=== PATIENT | male | born 1970 | race Hispanic/Latino ===

== ENCOUNTER 2024-02-14 18:59 | Observation (INO) | payer SELFPAY ==
--- NOTE | ~2024-02-14 | CT_ITS ---
EXAMINATION: CT facial bones w con DATE: 02/14/2024 22:34 INDICATION: Left facial swelling TECHNIQUE: Computed tomography (CT) of the facial bones and maxillofacial region was performed with 1 00 mL Omnipaque-350 intravenous contrast. Coronal reconstructions were obtained. Automated exposure c ontrol and iterative reconstruction technique were employed. The dose-length product was 577.92 mGy-c m. COMPARISON: None. FINDINGS: Dental disease including a few missing teeth. There is a large dental caries involving the left maxil andrea canine. There is associated periapical lucency also involving the adjacent left maxillary first bicuspid and which erodes through the overlying peripheral cortex. There is prominent soft tissue swe lling phlegmonous change with dense stranding in the subcutaneous fat at the left side of the upper l ip, cheek and extending cephalad along the left side of the nasal labial fold. No organized periphera lly enhancing abscess. There is additional periapical lucency with surrounding sclerosis involving th e left mandibular canine. Developmentally impacted right maxillary central incisor which extends ante roposteriorly within the right anteromedial aspect of the hard palate. Orbits are normal. Moderate mu cosal thickening the bilateral maxillary and ethmoid sinuses. The bilateral middle ear cavities, left mastoid air cells and visualized portions of the right mastoid air cells are clear. IMPRESSION: 1. Large dental Jihan involving the left maxillary canine with periapical lucency extending to involv e the adjacent left maxillary first bicuspid which erodes through the peripheral cortex with phlegmon ous change but no organized abscess in the overlying soft tissues. Reviewed, dictated and finalized at location A. IMPRESSION: 1. Large dental Jihan involving the left maxillary canine with periapical lucen cy extending to involve the adjacent left maxillary first bicuspid which erodes through the peripheral cortex with phlegmonous change but no organized abscess in the overlying soft tissues.
[2024-02-14 19:02] VITALS: BP 183/71; PULSE 78; RESP 20; TEMP 36.2; O2SAT 99
[2024-02-14 21:19] VITALS: BP 150/77; PULSE 90; RESP 16; TEMP 36.6; O2SAT 97
--- NOTE | 2024-02-14 21:26 | ED.DENTAL ---
HPI - Dental/Oral General Chief complaint: Dental/Oral <LYNETTE Vazquez Last Filed: 02/15/24 00:09> Stated complaint: dental <LYNETTE Vazquez Last Filed: 02/15/24 00:09> Time Seen by Provider: 02/14/24 21:15 <LYNETTE Vazquez Last Filed: 02/15/24 00:09> Source: patient <LYNETTE Vazquez Last Filed: 02/15/24 00:09> Mode of arrival: ambulatory <LYNETTE Vazquez Last Filed: 02/15/24 00:09> Limitations: language barrier (patient's family member is interpreting which he prefered) <LYNETTE Vazquez Last Filed: 02/15/24 00:09> History of Present Illness HPI Narrative: This is a 53 year old male that presents to the ER for dentalgia. Ongoing since yesterday. Associated with facial swelling and redness. Denies fevers or drainage. <LYNETTE Vazquez Last Filed: 02/15/24 00:09> Related Data Home medications: Home Medications Medication Instructions Recorded Confirmed acetaminophen 325 mg tablet 325 mg PO Q6H PRN Pain, Mild 02/15/24 02/15/24 (Tylenol) ibuprofen 200 mg tablet 200 mg PO Q6H PRN Pain, Mild 02/15/24 02/15/24 <LYNETTE Vazquez Last Filed: 02/15/24 00:09> Allergies/adverse reactions: Allergies Allergy/AdvReac Type Severity Reaction Status Date / Time No Known Allergies Allergy Verified 02/14/24 22:56 <LYNETTE Vazquez Last Filed: 02/15/24 00:09> Review of Systems Review of Systems: CONSTITUTIONAL: Denies fever ENT: Reports dentalgia <LYNETTE Vazquez Last Filed: 02/15/24 00:09> All systems reviewed & are unremarkable except as noted in HPI and below <LYNETTE Vazquez Last Filed: 02/15/24 00:09> [facility]LY [facility] Past Medical History Medical History: Medical History (Updated 02/14/24 @ 23:04 by Loretta Nix PA-C) No active medical problems <Loretta Nix PA-C - Last Filed: 02/15/24 00:09> Family History Family History: Family History (Updated 02/15/24 @ 03:23 by Brooke Amato) Father Hernia Mother Diabetes mellitus <Loretta Nix PA-C - Last Filed: 02/15/24 00:09> Social History Social History: Social History (Updated 02/14/24 @ 21:28 by Loretta Nix PA-C) Smoking status: Never smoker Alcohol intake: never Substance use: never Do You Feel Safe in your Home?: Yes Lack of Transportation: No Lack of Food: Never True Current Housing: I Have Housing Concerned About Future Housing: No Difficulty Paying Gas/Electric Bills: No Difficulty Paying for Meds: No Currently Unemployed: No Education: Grade School Difficulty w/ Childcare or Family Care: No Spiritual care concerns: No <Loretta Nix PA-C - Last Filed: 02/15/24 00:09> Exam Narrative: GENERAL: Well-appearing, well-nourished, and in no acute distress. HEAD: Normocephalic, atraumatic. EYES: EOMI. ENT: Nares clear, no rhinorrhea or epistaxis. Mucous membranes moist. Oropharynx without tonsillar hypertrophy exudate or other lesions. No trismus. Poor dentition. No focal edema or fluctuance to suggest abscess. Tooth number 12 decaying NECK: Supple. No adenopathy or masses. CHEST: No respiratory distress. HEART: Regular rate EXTREMITIES: Normal range of motion. No edema. SKIN: Warm, dry, no rash. NEURO: No focal deficits. Alert and oriented x3. PSYCH: Normal mood and affect <Loretta Nix PA-C - Last Filed: 02/15/24 00:09> Course Course Emergency Course: Patient updated on workup and recommendation for admission <Loretta Nix PA-C - Last Filed: 02/15/24 00:09> MEDICAL RECORD SPECIALIST/PA Physician Supervision For this patient encounter, I reviewed the MEDICAL RECORD SPECIALIST or PA documentation, treatment plan, and medical decision making and had [id number] time with this patient. I performed all aspects of the MDM as documented. <Laura Louis MD - Last Filed: 02/15/24 07:32> Consultations Consultation #1: Spoke with hospital
[2024-02-14 21:36] LABS: Basophils Percent Auto 0.4 % (0.2-1.2); Eosinophils Absolute Auto 0.2 K/mm3 (0-0.3); Eosinophils Percent Auto 2.2 % (0-4.4); Hematocrit 40.6 % (42.0-52.0); Hemoglobin 13.9 g/dL (14.0-18.0); Immature Granulocyte Absolute 0.02 K/mm3 (0.00-0.031); Immature Granulocyte Percent A 0.3 % (0-0.5); Lymphocytes Absolute Auto 2.23 K/mm3 (0.9-3.2); Mean Corpuscular HGB Conc 34.2 g/dl (32-36); Mean Corpuscular Hemoglobin 30.1 pg (26-34); Mean Corpuscular Volume 87.9 fl (80-100); Mean Platelet Volume 9.1 fl (7.4-10.4); Monocytes Absolute Auto 0.7 K/mm3 (0.1-0.6); Monocytes Percent Auto 9.5 % (2.6-8.5); Neutrophils Absolute Auto 4.5 K/mm3 (1.3-6.7); Neutrophils Percent Auto 58.6 % (45.5-73.1); Platelet Count Result 282 k/mm3 (150-375); Red Blood Count 4.62 M/mm3 (4.6-6.20); Red Cell Distribution Width 13.1 % (11.5-14.5); White Blood Count 7.7 K/mm3 (4.5-10.0)
[2024-02-14 21:48] LABS: Anion Gap 6 mmol/L (4-12); Blood Urea Nitrogen 17 mg/dL (9-20); CRP 4.5 mg/dL (<1.0); Calcium 9.4 mg/dL (8.4-10.2); Carbon Dioxide 26 mmol/L (22-30); Chloride 104 mmol/L (98-107); Estimated Glomerular Filt Rate > 60; Glucose 105 mg/dL (65-110); Potassium 3.3 mmol/L (3.4-5.0); Sodium 136 mmol/L (137-145)
[2024-02-14 22:03] LABS: Erythrocyte Sedimentation Rate 61 mm/hr (0-20)
[2024-02-14 22:12] LABS: Magnesium 2.2 mg/dL (1.6-2.3)
[2024-02-14] MEDS: POTASSIUM CHLORIDE 20 MEQ ER TABLET 40 MEQ PO (22:18)
[2024-02-14] MEDS: AMPICILLIN SULB 3 GM/NS 100 ML 3 GM/100 ML VIAL IVPB (22:58)
--- NOTE | 2024-02-14 23:09 | PM.IMHP ---
H&P: HPI History of Present Illness Date/Time: 02/14/24 23:09 Chief Complaint: Facial pain Narrative: Patient is a 52-year-old male presented to emergency room because of poor dental hygiene came with associated facial swelling or redness no fever no chills no vomiting no diarrhea. Patient has no history of diabetes hypertension or any heart disease. Review of Systems Review of Systems: No fevers chills nausea vomiting. No double vision no blurry vision. No difficulty hearing or sinus complaints. No chest pain shortness of breath fever palpitation dizziness ankle swelling. No coughing wheezing chills. No nausea constipation diarrhea abdominal pain reflux. No urgency frequency of urination. No hematuria. No skin rash eczema. No anxiety depression difficulty sleeping. No bleeding gums enlarged glands. No muscle ache back pain joint stiffness. No loss of strength numbness headache tremor or loss of memory. [facility] Past Medical History Medical History (Updated 02/14/24 @ 23:04 by Loretta Nix PA-C) No active medical problems Social History Social History (Updated 02/14/24 @ 21:28 by Loretta Nix PA-C) Substance use: never Meds Home Medications and Allergies Allergies Allergy/AdvReac Type Severity Reaction Status Date / Time No Known Allergies Allergy Verified 02/14/24 22:56 Vital Signs Vital Signs - 24 hr 02/14/24 19:02 02/14/24 21:19 Temperature 36.2 C L 36.6 C Pulse Rate 78 90 Respiratory Rate 20 16 Blood Pressure 183/71 H 150/77 H Pulse Oximetry 99 97 Oxygen Delivery Room Air Exam Narrative: GENERAL: Well appearing, no acute distress. HEAD: Normocephalic, atraumatic. Erythema redness of the face NECK: Supple. No adenopathy, no masses. RESPIRATORY: respirations nonlabored. , no rales, wheezing. CARDIOVASCULAR: Regular rate and rhythm without murmurs, . Peripheral pulses 2+ and equal bilaterally. ABDOMINAL: Soft, nontender, nondistended, no hepatosplenomegaly. Normoactive BS. MUSCULOSKELETAL: no Epigastric and no hypochondrial tenderness SKIN: Warm, dry, NEURO: A&O X3. Moves all extremities H&P: Results Labs Labs: Short CBC 02/14/24 Range/Units 21:31 WBC 7.7 (4.5-10.0) K/mm3 Hgb 13.9 L (14.0-18.0) g/dL Hct 40.6 L (42.0-52.0) % Plt Count 282 (150-375) k/mm3 [facility] 02/14/24 21:31 Sodium 136 L Potassium 3.3 L Chloride 104 Carbon Dioxide 26 BUN 17 Creatinine 0.90 Glucose 105 Calcium 9.4 Assessment and Plan Assessment and plan (1) Cellulitis, face: Code(s): L03.211 - Cellulitis of face Status: Acute Plan Cellulitis face IV fluid resuscitation Monitor lactic acid levels Repeat CBC CMP Two sets of Blood cultures C-reactive protein, levels high IV antibiotics Unasyn Hypokalemia will replace potassium Poor dental hygiene advised follow-up with a dentist as an outpatient
[2024-02-14 23:47] VITALS: BP 164/99; PULSE 87; RESP 16; TEMP 36.7; O2SAT 99
[2024-02-15 00:52] VITALS: BP 142/90; PULSE 84; RESP 16; TEMP 36.6; O2SAT 97
--- NOTE | 2024-02-15 01:25 | ADMGEN ---
This patient, Tato Mathews, was admitted to [address] [place] [address] Room 325-02 at 01:03. Patient/family oriented to hospital policies and general routines including ID bracelet, bed and alarms, visiting hours, pain management, procedures, bathroom and other care routines, personal items, smoking policy, room service/diet, and visiting hours. Information on how to activate the Rapid Response Team has been discussed. Patient/Family are encouraged to report perceived risks to care and to ask questions if they do not understand what they are told or what they should do.
[2024-02-15 01:26] VITALS: BMI 35.1
[2024-02-15] MEDS: HYDROcodone/acetaminophen (*CRX) 5-325 MG TABLET 1 TAB PO ×2 (03:16→08:36)
[2024-02-15] MEDS: AMPICILLIN SULB 3 GM/NS 100 ML 3 GM/100 ML VIAL IVPB ×2 (04:42→11:00)
[2024-02-15] MEDS: SODIUM CHLORIDE 0.9% IV 100 ML (04:42)
[2024-02-15 06:00] VITALS: BP 115/65; PULSE 85; RESP 18; TEMP 37.1; O2SAT 97
[2024-02-15 06:43] LABS: Basophils Percent Auto 0.4 % (0.2-1.2); Eosinophils Absolute Auto 0.1 K/mm3 (0-0.3); Eosinophils Percent Auto 2.3 % (0-4.4); Hematocrit 41.2 % (42.0-52.0); Hemoglobin 13.6 g/dL (14.0-18.0); Immature Granulocyte Absolute 0.03 K/mm3 (0.00-0.031); Immature Granulocyte Percent A 0.5 % (0-0.5); Lymphocytes Absolute Auto 1.75 K/mm3 (0.9-3.2); Lymphocytes Percent Auto 30.8 % (18.3-44.2); Mean Corpuscular Hemoglobin 29.8 pg (26-34); Mean Corpuscular Volume 90.2 fl (80-100); Mean Platelet Volume 9.6 fl (7.4-10.4); Monocytes Absolute Auto 0.6 K/mm3 (0.1-0.6); Monocytes Percent Auto 10.6 % (2.6-8.5); Neutrophils Absolute Auto 3.2 K/mm3 (1.3-6.7); Neutrophils Percent Auto 55.4 % (45.5-73.1); Platelet Count Result 279 k/mm3 (150-375); Red Blood Count 4.57 M/mm3 (4.6-6.20); Red Cell Distribution Width 13.1 % (11.5-14.5); White Blood Count 5.7 K/mm3 (4.5-10.0)
[2024-02-15 06:58] LABS: Anion Gap 5 mmol/L (4-12); Blood Urea Nitrogen 13 mg/dL (9-20); Calcium 8.6 mg/dL (8.4-10.2); Carbon Dioxide 27 mmol/L (22-30); Chloride 105 mmol/L (98-107); Estimated CRCL calculation 92 ml/min; Estimated Glomerular Filt Rate > 60; Glucose 107 mg/dL (65-110); Potassium 3.5 mmol/L (3.4-5.0); Sodium 137 mmol/L (137-145)
--- NOTE | 2024-02-15 08:46 | PM.IMPN ---
Progress Note: A&P Assessment and Plan (1) Cellulitis, face: Code(s): L03.211 - Cellulitis of face Status: Acute Assessment and Plan: Left sided facial swelling with associated dental pain. Face CT: Large dental Jihan involving the left maxillary canine with periapical lucency extending to involve the adjacent left maxillary first bicuspid which erodes through the peripheral cortex with phlegmonous change but no organized abscess in the overlying soft tissues. IV antibiotics: Unasyn IV fluid resuscitation Poor dental hygiene advised follow-up with a dentist as an outpatient C-reactive protein 4.5 Monitor lactic acid levels Two sets of Blood cultures Subjective Date/time seen: 02/15/24 08:46 Objective Data Vital Signs Vital Signs: Vital Signs - 24 hr 02/14/24 19:02 02/14/24 21:19 02/14/24 23:47 Temperature 97.2 F L 97.8 F 98.1 F Pulse Rate 78 90 87 Respiratory Rate 20 16 16 Blood Pressure 183/71 H 150/77 H 164/99 H Pulse Oximetry 99 97 99 Oxygen Delivery Room Air 02/15/24 00:52 02/15/24 01:26 02/15/24 06:00 Temperature 97.8 F 98.8 F Pulse Rate 84 85 Respiratory Rate 16 18 Blood Pressure 142/90 H 115/65 Pulse Oximetry 97 97 Oxygen Delivery Room Air Intake/Output Intake/Output: Intake & Output 02/12/24 02/13/24 02/14/24 02/15/24 23:59 23:59 23:59 23:59 Intake Total 100 360 Balance 100 360 Meds/Results Medications: Active Medications Generic Name Dose Route Start Last Admin Trade Name Freq PRN Reason Stop Dose Admin Acetaminophen 650 mg 02/14/24 23:04 Acetaminophen 325 Mg Tablet PO Q4H PRN Mild Pain (1-3) or Fever Hydrocodone Bitart/Acetaminophen 1 tab 02/14/24 23:04 02/15/24 08:36 Hydrocodone/Acetaminophen (*Crx) 5-325 Mg Tablet PO 1 tab Q4H PRN Administration Moderate Pain (4-6) Ampicillin Sodium/Sulbactam Sodium 3 gm in 100 mls @ 200 mls/hr 02/15/24 05:00 02/15/24 04:42 Unasyn 3 Gm/Ns 100 Ml IVPB 200 mls/hr Q6H NURIS Administration Radiology Results: ITS Impressions Face CT 02/14/24 22:43 IMPRESSION: 1. Large dental Jihan involving the left maxillary canine with periapical lucency extending to involve the adjacent left maxillary first bicuspid which erodes through the peripheral cortex with phlegmonous change but no organized abscess in the overlying soft tissues. Labs Labs: Laboratory Results - last 24 hr 02/14/24 02/15/24 21:31 05:35 WBC 7.7 5.7 RBC 4.62 4.57 L Hgb 13.9 L 13.6 L Hct 40.6 L 41.2 L MCV 87.9 90.2 MCH 30.1 29.8 MCHC 34.2 33.0 RDW 13.1 13.1 Plt Count 282 279 MPV 9.1 9.6 Immature Gran % (Auto) 0.3 0.5 Neut % (Auto) 58.6 55.4 Lymph % (Auto) 29.0 30.8 [place] % (Auto) 9.5 H 10.6 H Eos % (Auto) 2.2 2.3 Baso % (Auto) 0.4 0.4 Lymph # (Auto) 2.23 1.75 [place] # (Auto) 0.7 H 0.6 Eos # (Auto) 0.2 0.1 Baso # (Auto) 0.0 0.0 Abs Immat Gran (auto) 0.02 0.03 Absolute Neuts (auto) 4.5 3.2 Absolute Nucleated RBC 0.000 0.000 Nucleated RBC % 0.0 0.0 ESR 61 H Sodium 136 L 137 Potassium 3.3 L 3.5 Chloride 104 105 Carbon Dioxide 26 27 Anion Gap 6 5 BUN 17 13 Creatinine 0.90 0.80 Estim Creat Clear Calc Not Reportable 92 Estimated GFR > 60 > 60 Glucose 105 107 Calcium 9.4 8.6 Magnesium 2.2 C-Reactive Protein 4.5 H
--- NOTE | 2024-02-15 12:36 | PM.DS ---
DS: Admitting Diagnosis Discharge Date 02/15/2024 Admitting Diagnosis Cellulitis face DS: Discharge Diagnosis Discharge Diagnosis (1) Dental caries: Code(s): K02.9 - Dental caries, unspecified Status: Acute (2) Facial swelling: Code(s): R22.0 - Localized swelling, mass and lump, head Status: Acute DS: Summary Hospital Course Reason for hospitalization: Dental caries Facial swelling Hospital Course: Patient is Khmer speaking. He requested using google translate on his phone throughout exam. 53 year old male with no significant past medical history presented to the hospital for left-sided facial swelling with associated dental pain. Patient denies shortness of breath and difficulty eating/drinking. Patient has not been seen by a dentist for current dental pain with associated left facial swelling.A face CT was obtained and revealed a large dental beba involving the left maxillary canine with periapical lucency extending to involve the adjacent left maxillary 1st bicuspid which erodes through the peripheral cortex with phlegmonous change but no organized abscess in the overlying soft tissues. Patient states pain is well controlled with current pain management. He will be discharged home with a week of Tylenol and [place] for pain management until he is able to see his PCP and/or dentist. Discussed in depth with patient the importance of following up with a dentist to evaluate his dental caries. Patient does not currently have an abscess and is being treated with Augmentin to prevent abscess formation. He does not have a dentist at this time. Gave the patient information for [facility] and [employer] [facility]. Patient states understanding of discharge plan. Patient was discharged home in a stable condition. He will follow up with his primary care provider and a dentist in 1 week. Status at Discharge Functional status at discharge: independent ambulation Time Spent with Patient Time attestation: Total time spent providing and/or coordinating discharge services: Time spent: Greater than 30 minutes Exam Narrative: AF HR 85 RR 18 SpO2 97 BP 115/65 General: well nourished, well-developed male in no acute respiratory distress who is nontoxic appearing, sitting up in bed. HEENT: Normocephalic. Atraumatic. Pupils equal round reactive to light. Extraocular movement intact. Sclera clear and anicteric. Nares patent. No oral lesions. Poor dental hygiene missing several teeth. Tongue is midline. Palate devyn symmetrically. Left facial swelling without erythema. Chest: Lungs are clear to auscultation bilaterally. No wheezes or crackles. CV: Heart was regular rate and rhythm. S1/S2. No murmurs, gallops, or rubs. Abd: Abdomen was soft. Nontender. Nondistended. Positive bowel sounds. No organomegaly or masses. Ext: No clubbing, cyanosis, or edema. 2+ DP pulses bilaterally. Neuro: Patient is alert and oriented x4. Speech is clear. Psych: Normal mood and affect. Patient is pleasant and cooperative. Skin: Warm and dry. No rashes noted. DS: Data Data Completed and Pending Completed studies during hospitalization: Face CT Labs on day of discharge: Labs from last 24 hours 02/15/24 02/14/24 05:35 21:31 WBC 5.7 7.7 RBC 4.57 L 4.62 Hgb 13.6 L 13.9 L Hct 41.2 L 40.6 L MCV 90.2 87.9 MCH 29.8 30.1 MCHC 33.0 34.2 RDW 13.1 13.1 Plt Count 279 282 MPV 9.6 9.1 Immature Gran % (Auto) 0.5 0.3 Neut % (Auto) 55.4 58.6 Lymph % (Auto) 30.8 29.0 [place] % (Auto) 10.6 H 9.5 H Eos % (Auto) 2.3 2.2 Baso % (Auto) 0.4 0.4 Lymph # (Auto) 1.75 2.23 [place] # (Auto) 0.6 0.7 H Eos # (Auto) 0.1 0.2 Baso # (Auto) 0.0 0.0 Abs Immat Gran (auto) 0.03 0.02 Absolute Neuts (auto) 3.2 4.5 Absolute Nucleated RBC 0.000 0.000 Nucleated RBC % 0.0 0.0 ESR 61 H Sodium 137 136 L Potassium 3.5 3.3 L Chloride 105 104 Carbon Dioxide 27 26 Anion Gap 5 6 BUN 13 17 Cr
== END 2024-02-15 13:50 | disposition home or self-care (01) ==
LOC: ANHED 23:04 → ANH3MEDSUR 02-15 08:44
PROVIDERS: Admitting Provider Internal Medicine; Emergency Provider Physician Assistant; Visit Provider Hospitalist
DX: K02.9 Dental caries, unspecified (principal); R22.0 Localized swelling, mass and lump, head; Z79.1 Long term (current) use of non-steroidal anti-inflammatories (NSAID)
CPT/HCPCS: 36415; 70487; 80048; 83735; 85025; 85652; 86140; 87040; 96365; 99285; A9270; G0378; J0295; Q9967